=== PATIENT | female | born 1995 | race Caucasian/White ===

== ENCOUNTER 2017-02-08 03:14 | Emergency (ER) | payer OTHER ==
[~2017-02-08] VITALS: Ht 152.4 cm; Wt 104.5 kg
[2017-02-08] MEDS ORDERED: WELLTAB40 PO (03:24)
[2017-02-08] MEDS ORDERED: GLYCADSU PR (04:42)
[2017-02-08] MEDS ORDERED: LACTULOSE 20 GM/30 ML SYRUP UD PO ONE (04:45)
[2017-02-08] MEDS: GLYCERIN ADULT SUPP PR ONE ×2 (04:46→05:07)
[2017-02-08 05:19] VITALS: BP 141/72
== END 2017-02-08 05:21 | disposition home or self-care (01) ==
LOC: M ED 03:14
DX: K59.00 Constipation, unspecified (principal); J45.909 Unspecified asthma, uncomplicated; F41.9 Anxiety disorder, unspecified; F17.210 Nicotine dependence, cigarettes, uncomplicated; Z79.899 Other long term (current) drug therapy

== ENCOUNTER 2017-03-17 17:49 | Emergency (ER) | payer OTHER ==
[~2017-03-17 17:49] MED LIST: GLYCADSU PR; WELLTAB40 PO
[2017-03-17 17:50] VITALS: BP_DIAS 74
[2017-03-17] MEDS ORDERED: ADDE25CA PO (18:15)
--- NOTE | 2017-03-17 19:28 | REP ---
RIGHT ANKLE, FOUR VIEWS: There is no evidence of an acute fracture, dislocation or intrinsic bone disease. IMPRESSION: No fracture or dislocation. Signed by Moustapha De La Cruz MD 03/17/2017 07:44 P
[2017-03-17] MEDS ORDERED: IBUPROFEN 600 MG TAB PO ONE (20:15)
[2017-03-17] MEDS ORDERED: IBUP-1022 PO ×2 (20:17→20:43)
[2017-03-17 20:54] VITALS: BP_SYST 142
== END 2017-03-17 20:56 | disposition home or self-care (01) ==
LOC: M ED 17:49
DX: S93.401A Sprain of unspecified ligament of right ankle, initial encounter (principal); X50.0XXA Overexertion from strenuous movement or load, initial encounter; Y92.018 Other place in single-family (private) house as the place of occurrence of the external cause; Y93.89 Activity, other specified; Y99.8 Other external cause status